=== PATIENT | female | born 1985 | race American Indian/Alaskan Native ===

== ENCOUNTER 2018-04-06 16:10 | Emergency (ER) | payer SELFPAY ==
--- NOTE | 2018-04-06 20:08 | Emergency Department Report ---
Abscess Boil HPI - HPI Chief Complaint: Skin/Abscess/Foreign Body Stated Complaint: INFECTION IN FINGER Time Seen by Provider: 04/06/18 19:28 Duration: 3 Days Location: Other (right thumb) Severity: Moderate History: Yes Pain, Yes Purulent Drainage, No Fever, No Numbness, No Foreign Body , No Previous History, No Insect Bite HPI: Patient right thumb paronychia purulent drainage pain swelling Home Medications: Previous Rx's Medication Instructions Recorded Last Taken Type Cephalexin [Keflex] 500 mg PO Q8HR #30 cap 04/06/18 Unknown Rx traMADol [Ultram] 50 mg PO Q6HR PRN #12 tablet 04/06/18 Unknown Rx Allergies/Adverse Reactions: Allergies Allergy/AdvReac Type Severity Reaction Status Date / Time No Known Allergies Allergy Verified 04/06/18 16:52 ED Review of Systems ROS: Stated complaint: INFECTION IN FINGER Other details as noted in HPI Constitutional: denies: chills, fever Eyes: denies: eye pain, eye discharge, vision change ENT: denies: ear pain, throat pain Respiratory: denies: cough, shortness of breath, wheezing Cardiovascular: denies: chest pain, palpitations Endocrine: no symptoms reported Gastrointestinal: denies: abdominal pain, nausea, diarrhea Genitourinary: denies: urgency, dysuria, discharge Musculoskeletal: denies: back pain, joint swelling, arthralgia Skin: other (paronychia right thumb). denies: rash, lesions Neurological: denies: headache, weakness, paresthesias Psychiatric: denies: anxiety, depression Hematological/Lymphatic: denies: easy bleeding, easy bruising ED Past Medical Hx - Past Medical History Previous Medical History?: Yes Hx Asthma: Yes Additional medical history: IBS - Surgical History Past Surgical History?: Yes Hx Cholecystectomy: Yes Additional Surgical History: c-sections x3, - Social History Smoking Status: Current Every Day Smoker Substance Use Type: Alcohol - Medications Home Medications: Home Medications Medication Instructions Recorded Confirmed Last Taken Type Cephalexin [Keflex] 500 mg PO Q8HR #30 cap 04/06/18 Unknown Rx traMADol [Ultram] 50 mg PO Q6HR PRN #12 tablet 04/06/18 Unknown Rx ED Abscess Boil Physical Exam - Exam General: Vital signs noted. No distress. Alert and acting appropriately. Exam: Yes Tenderness, Yes Fluctuance, Yes Surrounding Cellulites/Erythema, Yes Normal Neurologic Exam, Yes Normal Circulation, No Lymphangitis, No Crepitation , No Heart Murmur I & D Note - I & D Note I & D Note: Right thumb paronychia anesthesia 1% plain lidocaine via digital block and cleaned with Betadine solution incision the nailbed wound irrigated with normal saline moderate Purulent drainage nailbed probed and irrigated all bleeding controlled sterile dressing applied patient given wound care instructions pt tolerate procedure with minimal distress . ED Course Vital Signs 04/06/18 16:49 Temperature 99 F Pulse Rate 73 Respiratory 18 Rate Blood Pressure 111/75 O2 Sat by Pulse 99 Oximetry Critical care attestation.: If time is entered above; I have spent that time in minutes in the direct care of this critically ill patient, excluding procedure time. ED Medical Decision Making - Medical Decision Making Paronychia IND patient's orifices were minimal distress E procedure note all bleeding was controlled patient will be DC'd home in stable condition with prescription for Keflex ultrasound daily dressing changes . Wound care instructions follow was also [facility] in 2-3 days for wound check ED Disposition Clinical Impression: Paronychia of right thumb Disposition: DC-01 TO HOME OR SELFCARE Is pt being admited?: No Does the pt Need Aspirin: No Condition: Good Instructions: Paronychia (ED) Prescriptions: Cephalexin [Keflex] 500 mg PO Q8HR #30 cap traMADol [Ultram] 50 mg PO Q6HR PRN #12 tablet PRN Reason: Pain Referrals: [facility] [Outside] - 3-5 Days Forms: Work/School Release Form(ED) Time of Disposition: 20:28
[2018-04-06] MEDS ORDERED: ULTRAM ONE (20:56)
[2018-04-06] MEDS ORDERED: ULTRAM PO ONE (21:08)
[2018-04-06 21:14] VITALS: BP 116/76
== END 2018-04-06 20:55 | disposition home or self-care (01) ==
LOC: ED 16:10
DX: L03.011 Cellulitis of right finger (principal); J45.909 Unspecified asthma, uncomplicated; F17.200 Nicotine dependence, unspecified, uncomplicated; Z90.49 Acquired absence of other specified parts of digestive tract
CPT/HCPCS: 99282

== ENCOUNTER 2018-04-21 17:53 | Emergency (ER) | payer SELFPAY ==
[2018-04-21 18:37] VITALS: BP 111/78
[2018-04-21] MEDS ORDERED: ZOFRAN ODT ONE (21:44)
[2018-04-21] MEDS ORDERED: BENADRYL IV ONE (22:39)
[2018-04-21] MEDS ORDERED: REGLAN IV ONE (22:39)
[2018-04-21] MEDS ORDERED: BACTRIM DS PO ONE (22:40)
[2018-04-21] MEDS ORDERED: TORADOL IV ONE (22:40)
--- NOTE | 2018-04-21 22:47 | Emergency Department Report ---
ED General Adult HPI - General Chief complaint: Extremity Problem,Nontraumatic Stated complaint: RT THUMB INFECTION/DIZZY Time Seen by Provider: 04/21/18 22:39 Source: patient Mode of arrival: Ambulatory Limitations: No Limitations - History of Present Illness Initial comments: 32-year-old -[place] female comes in complaining of thumb swelling near the nailbed of the right hand 2 days. Patient reports that she had it drained and was given antibiotics and got better but now swollen and painful. Patient also complains of a headache that she has. Patient reports that the light makes it worse and she is nauseated. She reports that she had received some bad news earlier today and she has been heavily crying. -: days(s) (2 for the right,1 day for headache) Location: head Severity scale (0 -10): 10 Quality: other (pressure) Consistency: constant Associated Symptoms: fever/chills, headaches, nausea/vomiting Treatments Prior to Arrival: none - Related Data Previous Rx's Medication Instructions Recorded Last Taken Type cephALEXin [Keflex] 500 mg PO Q8HR #30 cap 04/06/18 Unknown Rx Naproxen [Naprosyn] 500 mg PO Q12H #20 tablet 04/22/18 Unknown Rx Sulfamethoxazole/Trimethoprim 1 each PO BID 10 Days #20 tablet 04/22/18 Unknown Rx [Bactrim DS TAB] traMADol [Ultram 50 MG tab] 50 mg PO Q6HR PRN #12 tablet 04/22/18 Unknown Rx Allergies Allergy/AdvReac Type Severity Reaction Status Date / Time No Known Allergies Allergy Verified 04/06/18 16:52 ED Review of Systems ROS: Stated complaint: RT THUMB INFECTION/DIZZY Other details as noted in HPI Constitutional: chills, fever Gastrointestinal: nausea Musculoskeletal: joint swelling Skin: other (swelling of her left thumb) Neurological: headache ED Past Medical Hx - Past Medical History Hx Asthma: Yes Additional medical history: IBS - Surgical History Hx Cholecystectomy: Yes Additional Surgical History: c-sections x3 - Social History Smoking Status: Current Some Day Smoker - Medications Home Medications: Home Medications Medication Instructions Recorded Confirmed Last Taken Type cephALEXin [Keflex] 500 mg PO Q8HR #30 cap 04/06/18 Unknown Rx Naproxen [Naprosyn] 500 mg PO Q12H #20 tablet 04/22/18 Unknown Rx Sulfamethoxazole/Trimethoprim 1 each PO BID 10 Days #20 tablet 04/22/18 Unknown Rx [Bactrim DS TAB] traMADol [Ultram 50 MG tab] 50 mg PO Q6HR PRN #12 tablet 04/22/18 Unknown Rx ED Physical Exam - General Limitations: No Limitations - Eye Eye exam: Present: EOMI - ENT ENT exam: Present: mucous membranes moist - Respiratory Respiratory exam: Present: normal lung sounds bilaterally. Absent: respiratory distress - Cardiovascular Cardiovascular Exam: Present: regular rate, normal rhythm. Absent: systolic murmur, diastolic murmur, rubs, gallop - Extremities Exam Extremities exam: Present: joint swelling (left thumb distal) - Neurological Exam Neurological exam: Present: alert, oriented X3 - Psychiatric Psychiatric exam: Present: depressed - Expanded Skin Exam Expanded Type of lesion: Present: abscess Description of rash: Present: tenderness, erythematous, swelling, fluctuant ED Course Vital Signs 04/21/18 18:28 Temperature 98.5 F Pulse Rate 86 Respiratory 16 Rate Blood Pressure 111/78 O2 Sat by Pulse 99 Oximetry ED Medical Decision Making - Medical Decision Making Patient has been evaluated by this provider fast track. IV insertion, Toradol, Reglan, Benadryl for management of acute headache I&D of left thumb Critical care attestation.: If time is entered above; I have spent that time in minutes in the direct care of this critically ill patient, excluding procedure time. ED Disposition Clinical Impression: Paronychia of finger Qualifiers: Laterality: right Qualified Code(s): L03.011 - Cellulitis of right finger Disposition: DC-01 TO HOME OR SELFCARE Is pt being admited?: No Does the pt Need Aspirin: No Condition: Stable Instructions: Paronychia (ED) Additional Instructions: Complete antibiotics as prescribed. Pain medication as needed. If symptoms persist or gets worse please follow-up with her primary care provider. Prescriptions: Naproxen [Naprosyn] 500 mg PO Q12H #20 tablet Sulfamethoxazole/Trimethoprim [Bactrim DS TAB] 1 each PO BID 10 Days #20 tablet traMADol [Ultram 50 MG tab] 50 mg PO Q6HR PRN #12 tablet PRN Reason: Pain Referrals: PRIMARY CARE, [Primary Care Provider] - 3-5 Days Forms: Work/School Release Form(ED), Accompanied Note
[2018-04-22] MEDS ORDERED: XYLOCAINE 1% MPF 5 mL INFILTRATI ONE (00:06)
[2018-04-22] MEDS ORDERED: XYLOCAINE 1% 20 mL ONE (00:11)
[2018-04-22] MEDS ORDERED: PERCOCET 5/325 PO ONE (01:11)
== END 2018-04-22 01:21 | disposition home or self-care (01) ==
LOC: ED 17:53
DX: L03.011 Cellulitis of right finger (principal); J45.909 Unspecified asthma, uncomplicated; F17.200 Nicotine dependence, unspecified, uncomplicated; Z90.49 Acquired absence of other specified parts of digestive tract
CPT/HCPCS: 87116; 96374; 96375; 99283; J1200; J1885; J2765; Q0162

== ENCOUNTER 2018-12-15 09:04 | Emergency (ER) | payer SELFPAY ==
[2018-12-15 09:38] VITALS: BP 109/73
[2018-12-15 10:04] LABS: Bacteria,Urine 1+ /HPF (Negative); Bilirubin,Urine NEG (Negative); Blood,Urine LG (Negative); Color,Urine Yellow (Yellow); Mucus,Urine 2+ /HPF; Protein,Urine <15 mg/dL mg/dL (Negative); Urobilinogen,Urine < 2.0 mg/dL (<2.0)
[2018-12-15 10:10] LABS: HCG Qualitative,Urine Negative (Negative)
--- NOTE | 2018-12-15 10:22 | Emergency Department Report ---
ED Back Pain/Injury HPI - General Chief Complaint: Back Pain/Injury Stated Complaint: BACK PAIN Time Seen by Provider: 12/15/18 10:21 Source: patient Mode of arrival: Ambulatory Limitations: No Limitations - History of Present Illness Initial Comments: This is a 33-year-old female that presents with low back pain that is worse on right side x 1 day. Patient admits to urinary frequency and urgency. Patient also reports nausea with out vomiting since symptoms started. Denies vaginal discharge, vaginal bleeding, dysuria, and pelvic pain. MD Complaint: back pain Onset/Timin -: days(s) Similar Symptoms Previously: No Place: home Radiation: none Severity: mild Severity scale (0 -10): 4 Quality: aching Consistency: intermittent Improves With: none Worsens With: none Context: unknown Associated Symptoms: nausea/vomiting. denies: numbness, difficulty urinating, incontinence, fever/chills - Related Data Previous Rx's Medication Instructions Recorded Last Taken Type cephALEXin [Keflex] 500 mg PO Q8HR #30 cap 04/06/18 Unknown Rx Naproxen [Naprosyn] 500 mg PO Q12H #20 tablet 04/22/18 Unknown Rx Sulfamethoxazole/Trimethoprim 1 each PO BID 10 Days #20 tablet 04/22/18 Unknown Rx [Bactrim DS TAB] traMADol [Ultram 50 MG tab] 50 mg PO Q6HR PRN #12 tablet 04/22/18 Unknown Rx Sulfamethoxazole/Trimethoprim 1 each PO BID #6 tablet 12/15/18 Unknown Rx [Bactrim DS TAB] Allergies Allergy/AdvReac Type Severity Reaction Status Date / Time Penicillins Allergy Unknown Verified 12/15/18 09:05 ED Review of Systems ROS: Stated complaint: BACK PAIN Other details as noted in HPI Constitutional: denies: chills, fever Respiratory: denies: cough, shortness of breath, wheezing Cardiovascular: denies: chest pain, palpitations Gastrointestinal: nausea. denies: abdominal pain, vomiting, diarrhea Genitourinary: urgency, frequency. denies: dysuria, discharge Musculoskeletal: back pain. denies: joint swelling, arthralgia Skin: denies: rash, lesions Neurological: denies: headache, weakness, paresthesias Psychiatric: denies: anxiety, depression ED Past Medical Hx - Past Medical History IBS ED Back Pain Physical Exam - Exam General: Vital signs noted. No distress. Alert and acting appropriately. Back/Abdomen: Yes Flank Tenderness (left), No Abdominal Tenderness, No Perithoracic Tenderness, No Perilumbar Tenderness, No Sacroiliac Tenderness, No Straight Leg Raise Pain Neuro: Yes Normal Sensation, Yes Normal DTR's, Yes Normal Gait, No Motor Weakness ED Course Vital Signs 12/15/18 09:34 Temperature 98.3 F Pulse Rate 69 Respiratory 16 Rate Blood Pressure 109/73 O2 Sat by Pulse 100 Oximetry Ed Back Pain Tests - Tests Tests: Abnormal UA ED Medical Decision Making - Lab Data Lab Results 12/15/18 Range/Units 09:45 Urine Color Yellow (Yellow) Urine Turbidity Cloudy (Clear) Urine pH 5.0 (5.0-7.0) Ur Specific [place] 1.010 (1.003-1.030) Urine Protein <15 mg/dl (Negative) mg/dL Urine Glucose (UA) Neg (Negative) mg/dL Urine Ketones Neg (Negative) mg/dL Urine Blood Lg (Negative) Urine Nitrite Neg (Negative) Urine Bilirubin Neg (Negative) Urine Urobilinogen < 2.0 (<2.0) mg/dL Ur Leukocyte Esterase Tr (Negative) Urine WBC (Auto) 10.0 H (0.0-6.0) /HPF Urine RBC (Auto) 3.0 (0.0-6.0) /HPF U Epithel Cells (Auto) 28.0 H (0-13.0) /HPF Urine Bacteria (Auto) 1+ (Negative) /HPF Urine Mucus 2+ /HPF Urine HCG, Qual Negative (Negative) - Medical Decision Making Patient was examined by me. Vitals are normal and patient is in no acute distress. Obtained urinalysis and urine tests. Acute cystitis Start Bactrim DS 1 tab by mouth twice a day 3 days, 0 refills. Plan discussed with patient to discharge home and treat outpatient. She agrees with ER plan. Patient discharged home in stable condition. Follow up with PCP in 2-3 days. Critical care attestation.: If time is entered above; I have spent that time in minutes in the direct care of this critically ill patient, excluding procedure time. ED Disposition Clinical Impression: Left flank pain UTI (urinary tract infection) Qualifiers: Urinary tract infection type: acute cystitis Hematuria presence: with hematuria Qualified Code(s): N30.01 - Acute cystitis with hematuria Disposition: DC- TO HOME OR SELFCARE Is pt being admited?: No Does the pt Need Aspirin: No Condition: Stable Instructions: Urinary Tract Infection in Women (ED) Additional Instructions: Increase fluid intake to 1L to 2L daily. Complete full course of antibiotics as prescribed. Avoid drinking alcohol while taking antibiotics and for 24 hours after completion. Follow up with primary care provider in 2-3 days. Prescriptions: Sulfamethoxazole/Trimethoprim [Bactrim DS TAB] 1 each PO BID #6 tablet Referrals: BRO MCLAIN III, JIHAN [Primary Care Provider] - 3-5 Days Forms: Work/School Release Form(ED) Time of Disposition: 10:27
== END 2018-12-15 10:33 | disposition home or self-care (01) ==
LOC: ED 09:04
DX: N39.0 Urinary tract infection, site not specified (principal); Z88.0 Allergy status to penicillin
CPT/HCPCS: 81001; 81025